=== PATIENT | female | born 1990 | race Caucasian/White ===

== ENCOUNTER → 2022-07-27 16:35 | Outpatient (BNVA) | payer MEDICAID, SELFPAY | PROVIDERS: Family Provider Nurse Practitioner Family; Visit Provider Psychiatry & Neurology Psychiatry | DX: F43.23 Adjustment disorder with mixed anxiety and depressed mood (principal); F32.9 Major depressive disorder, single episode, unspecified; F43.10 Post-traumatic stress disorder, unspecified; Z79.899 Other long term (current) drug therapy | CPT/HCPCS: 80053; 80061; 83036; 84443; 85025 ==

== ENCOUNTER 2023-03-29 17:13 | Emergency (ER) | payer SELFPAY ==
[2023-03-29 17:53] VITALS: BMI 52.4
[2023-03-29 17:55] VITALS: BP 160/122; PULSE 76; RESP 18; TEMP 36.7; O2SAT 98
[2023-03-29 19:00] LABS: Basophils # 0.1 10^3/uL (0.0-0.1); Basophils % 0.5 %; Eosinophils # 0.3 10^3/uL (0.0-0.8); Eosinophils % 2.3 %; Hematocrit 44.9 % (37.0-47.0); Hemoglobin 15.1 g/dL (11.5-15.3); Lymphocytes # 3.6 10^3/uL (0.8-4.8); Lymphocytes % 26.9 %; Mean Corpuscular HGB Conc 33.6 g/dL (30.0-36.0); Mean Corpuscular Hemoglobin 28.8 pg (28.0-34.0); Mean Corpuscular Volume 85.5 fl (81-99); Monocytes # 0.8 10^3/uL (0.2-0.9); Monocytes % 6.2 %; Neutrophils # 8.49 10^3/uL (1.8-7.7); Neutrophils % 63.7 %; Nucleated Red Blood Cells % 0 %; Platelet Count 264 10^3/cmm (130-400); Red Blood Count 5.25 10^6/uL (4.1-5.3); Red Cell Distribution Width 12.6 % (12.1-15.1); White Blood Count 13.3 10^3/uL (4.0-10.0)
[2023-03-29 19:20] LABS: Alanine Aminotransferase 31 U/L (0-33); Albumin Level 4.1 g/dL (3.5-5.2); Alkaline Phosphatase 55 U/L (35-105); Anion Gap 16.1 (5-19); Aspartate Amino Transferase 18 U/L (0-32); Blood Urea Nitrogen 7 mg/dL (6-20); Calcium 8.6 mg/dL (8.5-10.5); Carbon Dioxide 21 mmol/L (22-29); Chloride 110 mmol/L (98-107); Globulin 2.5 g/dL (1.3-4.6); Glomerular Filtration Rate 95.8 mL/min (90-130); Glucose 97 mg/dL (65-115); Lipase 38 U/L (13-60); Osmolality Calculated 294 mOsm/kg (285-295); Potassium 4.1 mmol/L (3.5-5.1); Sodium 143 mmol/L (136-145); Total Bilirubin 0.2 mg/dL (0.15-1.2); Total Protein 6.6 g/dL (6.6-8.7)
--- NOTE | 2023-03-29 20:59 | W.ED.GENADLT ---
HPI - General Adult General: Chief complaint: General Medical Stated complaint: Face pain, fever, head pain, N/V Time Seen by Provider: 03/29/23 20:58 History of Present Illness: 32-year-old female comes in with maxillary facial pain starting 3 days ago. Patient also reports fever along with nausea. Patient appears nontoxic. Patient appears in mild to moderate discomfort. Patient denies any chronic medical problems or routine medicines. Associated symptoms: Reports nausea and vomiting Review of Systems General: Reports: 10 or more systems reviewed and unremarkable except in HPI and below Const: Reports: fever(s) ENMT: Reports: sinus pain GI: Reports: nausea and vomiting PFS ED PFSH: Medical History (Updated 03/29/23 @ 21:06 by NICK Molina) MDD (major depressive disorder) Psychiatric care PTSD (post-traumatic stress disorder) Social History Current gender identity: Female Physical Exam Const: COMMON NORMALS: alert HENMT: COMMON NORMALS: normocephalic HEAD & SCALP: normocephalic FACE & SINUS: Facial tenderness on exam of face and sinuses NOSE: Nasal discharge present TYMPANIC MEMBRANE: TM abnormal TM laterality: bilateral dull THROAT: posterior oropharynx normal Neck/C-Spine: COMMON NORMALS: full ROM Resp: COMMON NORMALS: normal respiratory effort and clear to auscultation bilaterally AUSCULTATION: clear to auscultation bilaterally Cardio: COMMON NORMALS: regular rate and regular rhythm RATE: regular rate RHYTHM: regular rhythm GI: COMMON NORMALS: non-tender Extremity: COMMON NORMALS: full ROM Neuro: SENSORIUM/ORIENTATION: Yes alert Skin: COMMON NORMALS: turgor normal GENERAL SKIN EXAM: turgor normal Course Vital Signs: Vital signs: Vital Signs Temperature 98.0 F 03/29/23 17:55 Pulse Rate 76 03/29/23 17:55 Respiratory Rate 18 03/29/23 17:55 Blood Pressure 160/122 03/29/23 17:55 Pulse Oximetry 98 03/29/23 17:55 Oxygen Delivery Me thod Room Air 03/29/23 17:55 [facility] - General Adult Medical Decision Making 32-year-old female comes in today for complaints of fever with sinus pain and dental discomfort. On exam no significant abnormality is noted to the gingiva or dentition. Patient does have some caries and some missing teeth. Posterior pharynx is pink and moist. Patient has maxillary sinus tenderness on palpation. Respirations are even lungs are clear to auscultation. Vital signs are normal. Differential diagnosis includes but not limited to rhinosinusitis, upper respiratory infection, viral syndrome. No signs of severe illness is noted. Laboratory values were unremarkable without any signs of dehydration. Believe the patient probably has a case of rhinosinusitis we will go ahead and treat with antibiotics and a dose of steroid. Patient was given some medication to help with pain and discomfort. Patient reported understanding of care plan and need for follow-up or return. Lab Data 03/29/23 18:52 03/29/23 18:52 Laboratory Results WBC 13.3 10^3/uL (4.0-10.0) H 03/29/23 18:52 RBC 5.25 10^6/uL (4.1-5.3) 03/29/23 18:52 Hgb 15.1 g/dL (11.5-15.3) 03/29/23 18:52 Hct 44.9 % (37.0-47.0) 03/29/23 18:52 MCV 85.5 fl (81-99) 03/29/23 18:52 MCH 28.8 pg (28.0-34.0) 03/29/23 18:52 MCHC 33.6 g/dL (30.0-36.0) 03/29/23 18:52 RDW 12.6 % (12.1-15.1) 03/29/23 18:52 Plt Count 264 10^3/cmm (130-400) 03/29/23 18:52 MPV 11.0 fL (7.4-10.4) H 03/29/23 18:52 Neut % (Auto) 63.7 % 03/29/23 18:52 Lymph % (Auto) 26.9 % 03/29/23 18:52 [place] % (Auto) 6.2 % 03/29/23 18:52 Eos % (Auto) 2.3 % 03/29/23 18:52 Baso % (Auto) 0.5 % 03/29/23 18:52 Neut # (Auto) 8.49 10^3/uL (1.8-7.7) H 03/29/23 18:52 Lymph # (Auto) 3.6 10^3/uL (0.8-4.8) 03/29/23 18:52 [place] # (Auto) 0.8 10^3/uL (0.2-0.9) 03/29/23 18:52 Eos # (Auto) 0.3 10^3/uL (0.0-0.8) 03/29/23 18:52 Baso # (Auto) 0.1 10^3/uL (0.0-0.1) 03/29/23 18:52 Nucleated RBC % (auto) 0 % 03/29/23 18:52 Nucleated RBCs # 0.0 /100WBC 03/29/23 18:52 Sodium 143 mmol/L (136-145) 03/29/23 18:52 Potassium 4.1 mmol/L (3.5-5.1) 03/29/23 18:52 Chloride 110 mmol/L (98-107) H 03/29/23 18:52 Carbon Dioxide 21 mmol/L (22-29) L 03/29/23 18:52 Anion Gap 16.1 (5-19) 03/29/23 18:52 BUN 7 mg/dL (6-20) 03/29/23 18:52 Creatinine 0.7 mg/dL (0.5-0.9) 03/29/23 18:52 GFR Calculation 95.8 mL/min (90-130) 03/29/23 18:52 Glucose 97 mg/dL (65-115) 03/29/23 18:52 Calculated Osmolality 294 mOsm/kg (285-295) 03/29/23 18:52 Calcium 8.6 mg/dL (8.5-10.5) 03/29/23 18:52 Total Bilirubin 0.2 mg/dL (0.15-1.2) 03/29/23 18:52 AST 18 U/L (0-32) 03/29/23 18:52 ALT 31 U/L (0-33) 03/29/23 18:52 Alkaline Phosphatase 55 U/L (35-105) 03/29/23 18:52 Total Protein 6.6 g/dL (6.6-8.7) 03/29/23 18:52 Albumin 4.1 g/dL (3.5-5.2) 03/29/23 18:52 Globulin 2.5 g/dL (1.3-4.6) 03/29/23 18:52 Lipase 38 U/L (13-60) 03/29/23 18:52 Discharge Plan Discharge Patient Disposition: Home Clinical Impression: Acute rhinosinusitis Condition: Stable Prescriptions: New amoxicillin-pot clavulanate 875-125 mg tablet 1 tab PO BID Qty: 14 0RF ondansetron HCl 4 mg tablet 4 mg PO Q8H PRN (Reason: nausea and vomiting) Qty: 6 0RF hydrocodone-acetaminophen 5-325 mg tablet 1 tab PO Q8H PRN (Reason: pain (scale score 7-10)) Qty: 7 0RF No Action propranolol 10 mg tablet 10 - 20 mg PO .2-3x daily Qty: 180 0RF Rx Instructions: Take 1 tab 2x daily. May take up to 3x daily for anxiety. After 1 week may increase to 2 tabs 3x daily. Discharge Orders: Discharge ED (Routine); Ordered 03/29/23 Ordered By: Henry Mehta Discharge Diet: Usual diet Discharge Activity: Increase activity as tolerated Patient Instructions: Rhinosinusitis (ED), Opioid Safety, Pain Management Activity Restrictions/Additional Instructions: Home and rest. Drink plenty of water and fluids. Take antibiotics as directed. Use acetaminophen and ibuprofen to control pain. Use hydrocodone for severe pain. Use ondansetron as needed for nausea or vomiting. Follow-up with primary care for further instructions. Return to ED for new concerns. Coding Level of Care Code ED Director Of Surgery for Karol Tariq
[2023-03-29] MEDS: cefTRIAXone 1,000 MG in water for injection-sterile 2.1 ML 2.1 MG IM (21:32)
[2023-03-29] MEDS: dexamethasone 10 mg/mL INJ IM (21:32)
[2023-03-29] MEDS: ondansetron 4 MG Tablet PO (21:33)
[2023-03-29] MEDS: HYDROcodone-acetaminophen 5-325 mg Tablet 1 TAB PO (21:33)
== END 2023-03-29 21:35 | disposition home or self-care (01) ==
PROVIDERS: Emergency Medicine; Emergency Provider Nurse Practitioner Family
DX: J01.90 Acute sinusitis, unspecified (principal)
CPT/HCPCS: 36415; 80053; 83690; 85025; 96372; 99284; J0696; J1100; Q0162

== ENCOUNTER 2023-05-04 19:06 | Emergency (ER) | payer SELFPAY ==
[2023-05-04 19:10] VITALS: BP 157/89; PULSE 95; RESP 18; TEMP 36.9; O2SAT 98; BMI 48.9
== END 2023-05-04 21:27 | disposition left against medical advice (07) ==
PROVIDERS: Emergency Provider Family Medicine
DX: Z53.21 Procedure and treatment not carried out due to patient leaving prior to being seen by health care provider (principal)

== ENCOUNTER 2023-07-10 09:59 | Emergency (ER) | payer SELFPAY ==
[2023-07-10 10:12] VITALS: BMI 44.2
[2023-07-10 10:14] VITALS: BP 177/117; PULSE 86; RESP 16; TEMP 36.8; O2SAT 98
[2023-07-10 10:56] LABS: Basophils # 0.1 10^3/uL (0.0-0.1); Basophils % 0.6 %; Eosinophils # 0.2 10^3/uL (0.0-0.8); Eosinophils % 2.3 %; Lymphocytes # 2.4 10^3/uL (0.8-4.8); Lymphocytes % 25.4 %; Mean Corpuscular HGB Conc 33.9 g/dL (30-55); Mean Corpuscular Volume 85.7 fl (85-98); Monocytes # 0.6 10^3/uL (0.2-0.9); Monocytes % 6.4 %; Nucleated Red Blood Cells % 0 %; Platelet Count 303 10^3/cmm (157-399); Red Blood Count 5.72 10^6/uL (3.85-5.65); Red Cell Distribution Width 12.2 % (12.1-15.1); White Blood Count 9.55 10^3/uL (3.29-11.43)
[2023-07-10 11:10] LABS: HCG, Serum Qual Negative (Negative)
[2023-07-10 11:17] LABS: Alanine Aminotransferase 25 U/L (0-33); Albumin Level 4.4 g/dL (3.5-5.2); Alkaline Phosphatase 62 U/L (35-105); Anion Gap 12.8 (5-19); Aspartate Amino Transferase 20 U/L (0-32); Blood Urea Nitrogen 6 mg/dL (6-20); Calcium 9.5 mg/dL (8.5-10.5); Carbon Dioxide 25 mmol/L (22-29); Chloride 107 mmol/L (98-107); Globulin 2.7 g/dL (1.3-4.6); Glomerular Filtration Rate 114.4 mL/min (90-130); Glucose 112 mg/dL (65-115); Lipase 29 U/L (13-60); Osmolality Calculated 290 mOsm/kg (285-295); Potassium 3.8 mmol/L (3.5-5.1); Sodium 141 mmol/L (136-145); Total Bilirubin 0.4 mg/dL (0.15-1.2); Total Protein 7.1 g/dL (6.6-8.7)
--- NOTE | 2023-07-10 12:11 | W.ED.ABDPA2 ---
HPI - Abdominal Pain General: Chief Complaint: Abdominal Pain Stated Complaint: upper abd pain/cough/NVD Time Seen by Provider: 07/10/23 10:48 Source: patient Mode of arrival: ambulatory History of Present Illness: 32-year-old female presents emergency room complaining of midepigastric and right lower quadrant pain with nausea. She denies any dysuria urgency or frequency does states she had little streaks of blood when she vomited and some blood in the stool intermittently for the last couple days she is not previously had any endoscopy she is not on any anticoagulants. No active bleeding at this time MD elicited complaint: abdominal pain Onset (ago): day(s) Location: Epigastric Severity: moderate Quality: cramping Exacerbating factors: nothing Relieving factors: nothing Associated Symptoms: Reports change in bowel habits, change in stool character, hematochezia and hematemesis; Denies anorexia, belching, bloating, chills, coffee ground emesis, constipation, GI cramping, diarrhea, dyspepsia, dysuria, excessive flatus, fever(s), heartburn, hematuria, fecal incontinence, loose stools, melena, nausea, poor appetite, syncope, vomiting and other Related Data: Date of Last Menstrual Period: 06/02/23 Review of Systems Const: Denies: fever(s) or chills Card: Denies: syncope Resp: Denies: dyspnea GI: Reports: hematemesis, change in bowel habits, change in stool character and hematochezia; Denies: nausea, vomiting, coffee ground emesis, heartburn, diarrhea, constipation, bloating, GI cramping, belching, excessive flatus, fecal incontinence, melena or other : Denies: dysuria or hematuria Musc: Denies: neck pain or back pain Skin/Breast: Denies: rash PFSH ED PFSH: Medical History MDD (major depressive disorder) Psychiatric care PTSD (post-traumatic stress disorder) Social History Current gender identity: Female Female Reproductive History: Date of last menstrual period: 06/02/23 Physical Exam Const: GENERAL APPEARANCE: cooperative and comfortable ORIENTATION/CONSCIOUSNESS: Yes awake, Yes oriented to person, Yes oriented to place and Yes oriented to time HENMT: COMMON NORMALS: normocephalic, atraumatic and hearing grossly normal bilaterally HEAD & SCALP: normocephalic and atraumatic Resp: COMMON NORMALS: normal respiratory effort, No retractions, No use of accessory muscles and clear to auscultation bilaterally AUSCULTATION: clear to auscultation bilaterally Cardio: COMMON NORMALS: regular rate, regular rhythm and No murmurs present (Cardio) RATE: regular rate RHYTHM: regular rhythm GI: COMMON NORMALS: No hepatosplenomegaly present AUSCULTATION: Yes normoactive bowel sounds PALPATION: Yes Tenderness to palpation present (GI) Details: RLQ, No Guarding due to palpation present (GI) and Yes No hepatosplenomegaly present Extremity: COMMON NORMALS: normal to inspection, capillary refill normal, no clubbing, cyanosis or edema, no calf tenderness and no pedal edema Neuro: SENSORIUM/ORIENTATION: Yes oriented to person, Yes oriented to place and Yes oriented to time Skin: COMMON NORMALS: no rashes or lesions noted GENERAL SKIN EXAM: no rashes or lesions noted Course Vital Signs: Vital signs: Vital Signs Temperature 98.3 F 07/10/23 10:14 Pulse Rate 86 07/10/23 10:14 Respiratory Rate 16 07/10/23 10:14 Blood Pressure 177/117 07/10/23 10:14 Pulse Oximetry 98 07/10/23 10:14 Oxygen Delivery Me thod Room Air 07/10/23 10:14 MDM - Abdominal Pain Medical Decision Making Repeat exam pain is mostly resolved. Discussed findings with the patient. We will discharge patient home clear liquid diet then advance as tolerated after 24 hours start on Protonix 40 twice daily for 10 days and daily Carafate as needed ondansetron as needed we will refer to general surgery for possible endoscopy. Differential Diagnosis Likely abdominal pain, acute appendicitis and small bowel obstruction Medical Records I reviewed the patient's medical records. Lab Data I reviewed the patient's lab results. 07/10/23 10:43 07/10/23 10:43 Labs/Radiology: Laboratory Results WBC 9.55 10^3/uL (3.29-11.43) 07/10/23 10:43 RBC 5.72 10^6/uL (3.85-5.65) H 07/10/23 10:43 Hgb 16.60 g/dL (11.27-16.99) 07/10/23 10:43 Hct 49.0 % (36-47) H 07/10/23 10:43 MCV 85.7 fl (85-98) 07/10/23 10:43 MCH 29.0 pg (27-33) 07/10/23 10:43 MCHC 33.9 g/dL (30-55) 07/10/23 10:43 RDW 12.2 % (12.1-15.1) 07/10/23 10:43 Plt Count 303 10^3/cmm (157-399) 07/10/23 10:43 MPV 11.0 fL (7.4-10.4) H 07/10/23 10:43 Neut % (Auto) 65.0 % 07/10/23 10:43 Lymph % (Auto) 25.4 % 07/10/23 10:43 [place] % (Auto) 6.4 % 07/10/23 10:43 Eos % (Auto) 2.3 % 07/10/23 10:43 Baso % (Auto) 0.6 % 07/10/23 10:43 Neut # (Auto) 6.20 10^3/uL (1.8-7.7) 07/10/23 10:43 Lymph # (Auto) 2.4 10^3/uL (0.8-4.8) 07/10/23 10:43 [place] # (Auto) 0.6 10^3/uL (0.2-0.9) 07/10/23 10:43 Eos # (Auto) 0.2 10^3/uL (0.0-0.8) 07/10/23 10:43 Baso # (Auto) 0.1 10^3/uL (0.0-0.1) 07/10/23 10:43 Nucleated RBC % (auto) 0 % 07/10/23 10:43 Nucleated RBCs # 0.0 /100WBC 07/10/23 10:43 Sodium 141 mmol/L (136-145) 07/10/23 10:43 Potassium 3.8 mmol/L (3.5-5.1) 07/10/23 10:43 Chloride 107 mmol/L (98-107) 07/10/23 10:43 Carbon Dioxide 25 mmol/L (22-29) 07/10/23 10:43 Anion Gap 12.8 (5-19) 07/10/23 10:43 BUN 6 mg/dL (6-20) 07/10/23 10:43 Creatinine 0.6 mg/dL (0.5-0.9) 07/10/23 10:43 GFR Calculation 114.4 mL/min (90-130) 07/10/23 10:43 Glucose 112 mg/dL (65-115) 07/10/23 10:43 Calculated Osmolality 290 mOsm/kg (285-295) 07/10/23 10:43 Calcium 9.5 mg/dL (8.5-10.5) 07/10/23 10:43 Total Bilirubin 0.4 mg/dL (0.15-1.2) 07/10/23 10:43 AST 20 U/L (0-32) 07/10/23 10:43 ALT 25 U/L (0-33) 07/10/23 10:43 Alkaline Phosphatase 62 U/L (35-105) 07/10/23 10:43 Total Protein 7.1 g/dL (6.6-8.7) 07/10/23 10:43 Albumin 4.4 g/dL (3.5-5.2) 07/10/23 10:43 Globulin 2.7 g/dL (1.3-4.6) 07/10/23 10:43 Lipase 29 U/L (13-60) 07/10/23 10:43 HCG, Qual Negative (Negative) 07/10/23 10:43 Urine Color Yellow (Yellow) 07/10/23 12:10 Urine Appearance Sl hazy (CLEAR) A 07/10/23 12:10 Urine pH 5 (5-7) 07/10/23 12:10 Ur Specific [place] 1.025 (1.005-1.030) 07/10/23 12:10 Urine Protein Trace (Negative) 07/10/23 12:10 Urine Glucose (UA) Norm (Normal) 07/10/23 12:10 Urine Ketones 1+ (Negative) H 07/10/23 12:10 Urine Blood 2+ (Negative) H 07/10/23 12:10 Urine Nitrate Negative (Negative) 07/10/23 12:10 Urine Bilirubin Neg (Negative) 07/10/23 12:10 Urine Urobilinogen Norm mg/dL (Negative) 07/10/23 12:10 Ur Leukocyte Esterase Trace (Negative) H 07/10/23 12:10 Urine RBC 0-4 /hpf (0-2) H 07/10/23 12:10 Urine WBC 0-4 /hpf (0-5) H 07/10/23 12:10 Ur Squamous Epith Cells 5-10 /hpf (0-5) H 07/10/23 12:10 Amorphous Sediment Not Reportable 07/10/23 12:10 Urine Bacteria 1+ /hpf (NONE) H 07/10/23 12:10 Urine Mucus 1+ /hpf 07/10/23 12:10 All radiology interpretation(s) finalized by discharge Discharge Plan Discharge Patient Disposition: Home Clinical Impression: Abdominal pain, Hematochezia, Hematemesis Condition: Stable Prescriptions: New Protonix 40 mg tablet,delayed release (DR/EC) 40 mg PO DAILY Qty: 30 0RF Rx Instructions: Twice daily x10 days then daily Carafate 1 gram tablet 1 g PO Q6H PRN (Reason: dyspepsia) 28 Days Qty: 112 0RF ondansetron HCl 4 mg tablet 4 mg PO Q6H PRN (Reason: nausea and vomiting) Qty: 20 0RF No Action propranolol 10 mg tablet 10 - 20 mg PO .2-3x daily Qty: 180 0RF Rx Instructions: Take 1 tab 2x daily. May take up to 3x daily for anxiety. After 1 week may increase to 2 tabs 3x daily. amoxicillin-pot clavulanate 875-125 mg tablet 1 tab PO BID Qty: 14 0RF ondansetron HCl 4 mg tablet 4 mg PO Q8H PRN (Reason: nausea and vomiting) Qty: 6 0RF hydrocodone-acetaminophen 5-325 mg tablet 1 tab PO Q8H PRN (Reason: pain (scale score 7-10)) Qty: 7 0RF Discharge Orders: Discharge ED (Routine); Ordered 07/10/23 Ordered By: Prashanth Edward Discharge Diet: As Directed Patient Instructions: Diet for Stomach Ulcers and Gastritis (ED), GERD (Gastroesophageal Reflux Disease) (ED), Abdominal Pain (ED), Opioid Safety, Pain Management Activity Restrictions/Additional Instructions: You are seen today for with complaints of abdominal pain and blood in vomit and stool. Your hemoglobin is normal and there is no sign on your laboratory studies of any active bleeding. Clear liquid diet for the next 24 to 48 hours and advance as tolerated. Recommend started on Protonix twice daily for 10 days then once daily after that you can supplement as needed for abdominal discomfort with slow Carafate. You are also given ondansetron to use as needed for nausea or vomiting. apartment community manager will make arrangements for her to follow-up with general surgery for endoscopy. Stand Alone Forms: Work/School Release Coding Level of Care Code ED Terminal Operations Supervisor for Karol Tariq
[2023-07-10 12:19] LABS: Urine Appearance SL Hazy (CLEAR); Urine Color Yellow (Yellow); pH Urine 5 (5-7)
[2023-07-10 12:20] LABS: Add Urine Microscopic? YES; Bilirubin Urine Neg (Negative); Blood Urine 2+ (Negative); Glucose Urine UA Norm (Normal); Ketones Urine 1+ (Negative); Leukocyte Esterase Urine Trace (Negative); Nitrate Urine Negative (Negative); Protein Urine Trace (Negative); Specific Gravity, Urine 1.025 (1.005-1.030); Urobilinogen Urine Norm (Negative)
[2023-07-10 12:30] LABS: Add Urine Culture? No; Bacteria Urine 1+ /hpf; Mucus Urine 1+ /hpf; RBC Urine 0-4 /hpf (0-2); WBC Urine 0-4 /hpf (0-5)
--- NOTE | 2023-07-10 12:50 | DCPLANNER ---
Referral was sent to general surgery on 07/10 at 12:51. Clinic to contact patient.
== END 2023-07-10 13:04 | disposition home or self-care (01) ==
PROVIDERS: Physician Assistant; Emergency Provider Family Medicine
DX: R10.31 Right lower quadrant pain (principal); K92.1 Melena; K92.0 Hematemesis
CPT/HCPCS: 36415; 80053; 81001; 83690; 84703; 85025; 99283